=== PATIENT | male | born 2005 | race African-American/Black ===

== ENCOUNTER 2024-01-08 23:41 | Emergency (ER) | payer OTHER ==
[2024-01-08] MEDS ORDERED: Ondansetron ODT 4 MG TAB ONE (23:58)
[2024-01-09] MEDS ORDERED: Mag-Al Plus 1200/1200/120 MG (30 mL) UDCUP ONE (00:14)
[2024-01-09] MEDS ORDERED: Lidocaine 2% Viscous 100 ML BOTTLE ONE (00:14)
[2024-01-09] MEDS ORDERED: Pantoprazole DR 40 MG TAB ONE (00:37)
[2024-01-09] MEDS ORDERED: Sucralfate 1 GM TAB ONE (01:01)
== END 2024-01-09 01:15 | disposition home or self-care (01) ==
LOC: NAV ERS 23:41
DX: R10.13 Epigastric pain (principal)
CPT/HCPCS: 99283; Q0162